=== PATIENT | male | born 1995 | race Caucasian/White ===

== ENCOUNTER 2022-11-23 05:02 | Emergency (ER) | payer BC ==
[~2022-11-23] VITALS: Ht 165.1 cm; Wt 91.0 kg
[2022-11-23] MEDS ORDERED: KETOROLAC 30 MG/ML VIAL IVP STA (05:34)
--- NOTE | 2022-11-23 05:34 | ED GU-Male ---
General Chief Complaint: Respiratory Problems Stated Complaint: GROIN PAIN Nursing Triage Note: TO ED VIA POV AND AMBULATORY TO ROOM 7 WITH C/O RIGHT SIDE GROIN PAIN SINCE 399. C/O PAIN WITH URINATION STATING "IT JUST MADE MY GROIN FEEL WORSE". Source: patient (HERMINIODUSTY Michelle DEJESUS) History of Present Illness Date Seen by Provider: Nov 23, 2022 Time Seen by Provider: 05:27 Initial Comments PT ARRIVES VIA POV FROM HOME C/O RIGHT GROIN / TESTICULAR PAIN SINCE 1899 LAST NIGHT SUDDEN ONSET OF PAIN WHILE SITTING, BUT JUST PRIOR TO THAT HE HAD LIFTED UP HIS GIRLFRIEND. RATES PAIN 7/10 WITH STANDING, 4/10 WITH LAYING DOWN. PAIN IS CONSTANT/DOES NOT GO AWAY STATES WHEN HE STANDS UP, IT FEELS LIKE THERE IS AN EXTRA "SAC" IN HIS RIGHT TESTICLE AREA. THIS GETS BETTER/GOES AWAY WHEN HE LAYS DOWN. VOIDED JUST PRIOR TO ARRIVAL AND PAIN GOT WORSE NO NAUSEA/VOMITING NO FEVER HAS NOT TAKEN ANYTHING FOR PAIN NO HISTORY OF SIMILAR NO PRIOR SURGERIES NO MEDICAL PROBLEMS LAST ATE AT 299--FRIED POTATOES AND SAUSAGE. PCP: DR. ARCHER--HAS NOT SEEN IN A LONG TIME (DUSTY DURHAM DO) Allergies and Home Medications Allergies Coded Allergies: No Known Drug Allergies (Unverified , 11/23/22) Patient Home Medication List Home Medication List Reviewed: Yes (JANELLE WICK MD) Sulfamethoxazole/Trimethoprim (Bactrim Ds Tablet) 1 Each Tablet, 1 EACH PO BID Prescribed by: JANELLE WICK on 11/23/22 0901 Review of Systems Review of Systems Constitutional: no symptoms reported Respiratory: no symptoms reported Cardiovascular: no symptoms reported Gastrointestinal: no symptoms reported Genitourinary: see HPI Musculoskeletal: no symptoms reported Skin: no symptoms reported Psychiatric/Neurological: No Symptoms Reported Endocrine: No Symptoms Reported Hematologic/Lymphatic: No Symptoms Reported (DUSTY DURHAM DO) Past Njbrddw-Ceyybe-Gmwxue Hx Patient Social History Tobacco Use?: No Substance use?: No Alcohol Use?: No (DUSTY DURHAM DO) Past Medical History Surgeries: No Respiratory: No Cardiac: No Neurological: No Genitourinary: No Gastrointestinal: No Musculoskeletal: No Endocrine: No HEENT: No Cancer: No Psychosocial: No Integumentary: No Blood Disorders: No (DUSTY DURHAM DO) Physical Exam Vital Signs Vital Signs - First Documented 11/23/22 05:26 Temp 36.6 Pulse 69 Resp 16 B/P (MAP) 140/89 (106) Pulse Ox 96 O2 Delivery Room Air (JANELLE WICK MD) Vital Signs Capillary Refill : Less Than 3 Seconds (DUSTY DURHAM DO) Height, Weight, BMI Height: '" Weight: lbs. oz. kg; 33.00 BMI Method: General Appearance: WD/WN, no apparent distress (BUT LOOKS UNCOMFORTABLE) Neck: normal inspection Cardiovascular: regular rate, rhythm, no murmur Respiratory: normal breath sounds, no respiratory distress, no accessory muscle use Gastrointestinal: normal bowel sounds, non tender, soft Male: No erythema; inguinal tenderness (RIGHT INGUINAL TENDERNESS. UNABLE TO PALPATE HERNIA, OR INDUCE BY STANDING AND COUGHING/STRAINING); No testicular tenderness; other (PENIS IS NORMAL, NON-TENDER, NO LESIONS OR DISCHARGE. TESTES ARE NORMAL POSITION, MOBILE, WITHOUT TENDERNESS OR SWELLING OR ERYTHEMA TO THE AREA. NO SIGNS OF INFECTION TO OVERLYING SKIN. ) Back: normal inspection, no CVA tenderness Extremities: normal inspection, normal capillary refill Neurologic/Psychiatric: no motor/sensory deficits, alert, normal mood/affect, oriented x 3 Skin: normal color, warm/dry; No rash (DUSTY DURHAM DO) Progress/Results/Core Measures Suspected Sepsis SIRS Temperature: Pulse: 69 Respiratory Rate: 16 Laboratory Tests 11/23/22 05:39: White Blood Count 11.1H Blood Pressure 140 /89 Mean: 106 Laboratory Tests 11/23/22 05:39: Creatinine 1.07, Platelet Count 249, Total Bilirubin 0.4 (DUSTY DURHAM DO) Results/Orders Lab Results Laboratory Tests Test 11/23/22 05:39 11/23/22 06:24 Range/Units White Blood Count 11.1 H 4.3-11.0 10^3/uL Red Blood Count 5.29 4.30-5.52 10^6/uL Hemoglobin 15.9 13.3-17.7 g/dL Hematocrit 46 40-54 % Mean Corpuscular Volume 88 80-99 fL Mean Corpuscular Hemoglobin 30 25-34 pg Mean Corpuscular Hemoglobin Concent 34 32-36 g/dL Red Cell Distribution Width 12.6 10.0-14.5 % Platelet Count 249 130-400 10^3/uL Mean Platelet Volume 10.3 9.0-12.2 fL Immature Granulocyte % (Auto) 0 % Neutrophils (%) (Auto) 54 42-75 % Lymphocytes (%) (Auto) 35 12-44 % Monocytes (%) (Auto) 9 0-12 % Eosinophils (%) (Auto) 2 0-10 % Basophils (%) (Auto) 0 0-10 % Neutrophils # (Auto) 6.0 1.8-7.8 10^3/uL Lymphocytes # (Auto) 3.9 1.0-4.0 10^3/uL Monocytes # (Auto) 1.0 0.0-1.0 10^3/uL Eosinophils # (Auto) 0.2 0.0-0.3 10^3/uL Basophils # (Auto) 0.1 0.0-0.1 10^3/uL Immature Granulocyte # (Auto) 0.0 0.0-0.1 10^3/uL Sodium Level 141 135-145 MMOL/L Potassium Level 3.8 3.6-5.0 MMOL/L Chloride Level 107 98-107 MMOL/L Carbon Dioxide Level 22 21-32 MMOL/L Anion Gap 12 5-14 MMOL/L Blood Urea Nitrogen 11 7-18 MG/DL Creatinine 1.07 0.60-1.30 MG/DL Estimat Glomerular Filtration Rate 98 BUN/Creatinine Ratio 10 Glucose Level 89 70-105 MG/DL Calcium Level 9.4 8.5-10.1 MG/DL Corrected Calcium 9.0 8.5-10.1 MG/DL Total Bilirubin 0.4 0.1-1.0 MG/DL Aspartate Amino Transf (AST/SGOT) 20 5-34 U/L Alanine Aminotransferase (ALT/SGPT) 25 0-55 U/L Alkaline Phosphatase 97 40-136 U/L Total Protein 7.5 6.4-8.2 GM/DL Albumin 4.5 3.2-4.5 GM/DL Urine Color YELLOW Urine Clarity CLEAR Urine pH 7.5 5-9 Urine Specific [place] 1.020 1.016-1.022 Urine Protein TRACE H NEGATIVE Urine Glucose (UA) NEGATIVE NEGATIVE Urine Ketones NEGATIVE NEGATIVE Urine Nitrite NEGATIVE NEGATIVE Urine Bilirubin NEGATIVE NEGATIVE Urine Urobilinogen 0.2 < = 1.0 MG/DL Urine Leukocyte Esterase NEGATIVE NEGATIVE Urine RBC (Auto) NEGATIVE NEGATIVE Urine RBC NONE /HPF Urine WBC 10-25 H /HPF Urine Squamous Epithelial Cells NONE /HPF Urine Crystals NONE /LPF Urine Bacteria NEGATIVE /HPF Urine Casts NONE /LPF Urine Mucus NEGATIVE /LPF Urine Culture Indicated YES (JANELLE WICK MD) Medications Given in ED (JANELLE WICK MD) Vital Signs/I&O 11/23/22 11/23/22 05:26 09:14 Temp 36.6 36.9 Pulse 69 83 Resp 16 19 B/P (MAP) 140/89 (106) 137/86 Pulse Ox 96 98 O2 Delivery Room Air Room Air (JANELLE WICK MD) Vital Signs/I&O Capillary Refill : Less Than 3 Seconds (DUSTY DURHAM DO) Blood Pressure Mean: 106 Progress Note : Progress Note GIVEN: -IV FLUIDS -TORADOL DIFFERENTIAL DX: UTI, STD, EPIDIDYMITIS, TESTICULAR TORSION, KIDNEY/URETERAL STONE, APPENDICITIS, HERNIA. ORDERED UA, CBC, CMP, WELL KUB AND CT ABDOMEN AND PELVIS IF CT NEGATIVE, MAY NEED TO DO ULTRASOUND 0600--CARE TURNED OVER TO DR. WICK, ALL STUDIES PENDING. (DUSTY DURHAM DO) Progress Note : Time: 09:01 (JANELLE WICK MD) Diagnostic Imaging Diagonstic Imaging: CT Comments [facility], [place] NAME: MATTY OZUNA [facility] REC#: [id number] PT STATUS: REG ER : 1995 PHYSICIAN: DUSTY DURHAM DO ADMIT DATE: 11/23/22/ER Draft Date of Exam:11/23/22 CT ABD/PELVIS WO(KIDNEY STONE) PROCEDURE: CT urinary tract, rule out kidney stone. TECHNIQUE: Multiple contiguous axial images were obtained through the abdomen and pelvis without the use of intravenous contrast. Auto Exposure Controls were utilized during the CT exam to meet ALARA standards for radiation dose reduction. INDICATION: Flank pain. FINDINGS: The heart size is normal. The lung bases are clear. The liver is normal in size without focal lesions. Gallbladder is unremarkable. There is no biliary ductal dilatation. Spleen is normal. Pancreas and adrenal glands are unremarkable. Kidneys are normal in appearance. Specifically, there is no evidence of nephrolithiasis or obstructive uropathy. Aorta is nonaneurysmal. Bowel gas pattern is nonspecific. The appendix is normal. There is no free air. There is no ascites. There are no focal inflammatory changes. Bladder is normal. There is no pelvic mass, adenopathy or free fluid. The osseous structures are unremarkable. IMPRESSION: Unremarkable noncontrast CT abdomen and pelvis. Specifically, there is no evidence of nephrolithiasis or obstructive uropathy. Dictated on workstation # [id number] Dict: 11/23/2218 Trans: 11/23/22620 [id number] Interpreted by: ADRIANA SMITH MD Electronically signed by: Diagonstic Imaging: [facility] [place], [place] NAME: MATTY OZUNA [facility] REC#: [id number] PT STATUS: REG ER : 1995 PHYSICIAN: DUSTY DURHAM DO ADMIT DATE: 11/23/22/ER Draft Date of Exam:11/23/22 ABDOMEN/KUB 1VIEW INDICATION: Abdominal pain. FINDINGS: The lung bases are clear. Bowel gas pattern is nonspecific. There is no free air. There are no abnormal abdominal calcifications. IMPRESSION: Nonspecific bowel gas pattern. Dictated on workstation # [id number] Dict: 11/23/2215 Trans: 11/23/22616 [id number] Interpreted by: ADRIANA SMITH MD Electronically signed by: (JANELLE WICK MD) Departure Impression Primary Impression: Right groin pain Additional Impression: UTI (urinary tract infection) Qualified Codes: N39.0 - Urinary tract infection, site not specified Disposition: 01 HOME, SELF-CARE Condition: Stable Departure-Patient Inst. Decision time for Depature: 08:59 (JANELLE WICK MD) Referrals: HERNAN ARCHER DO Patient Instructions: Groin Strain ED, Urinary Tract Infection, Adult ED Add. Discharge Instructions: Drink plenty of fluids to stay well-hydrated. Take the antibiotics twice a day for the next 5 days. Complete the entire course for urinary tract infection. Take [id number] generic Aleve 2 pills twice daily with food as needed for pain. Contact your primary care doctor today for a follow-up appointment in 1 week. If you have worsening pain that is not relieved with the Aleve especially with fever, vomiting please return to the emergency room for reevaluation. Your ultrasound and CAT scan today did not show any evidence of hernia. Scripts Sulfamethoxazole/Trimethoprim (Bactrim Ds Tablet) 1 Each Tablet 1 EACH PO BID for 5 Days, #10 TAB Prov: JANELLE WICK MD 11/23/22 DUSTY DURHAM DO Nov 23, 2022 05:34 JANELLE WICK MD Nov 23, 2022 06:40
[2022-11-23] MEDS ORDERED: LACTATED RINGERS 1,000 ML IV ONE (05:45)
[2022-11-23 05:47] LABS: BASOPHILS # (AUTO) 0.1 10^3/uL (0.0-0.1); BASOPHILS % (AUTO) 0 % (0-10); EOSINOPHILS # (AUTO) 0.2 10^3/uL (0.0-0.3); EOSINOPHILS % (AUTO) 2 % (0-10); HEMATOCRIT 46 % (40-54); HEMOGLOBIN 15.9 g/dL (13.3-17.7); LYMPHOCYTES # (AUTO) 3.9 10^3/uL (1.0-4.0); LYMPHOCYTES % (AUTO) 35 % (12-44); MEAN CORPUSCULAR HEMOGLOBIN 30 pg (25-34); MEAN CORPUSCULAR HGB CONC 34 g/dL (32-36); MEAN CORPUSCULAR VOLUME 88 fL (80-99); MEAN PLATELET VOLUME 10.3 fL (9.0-12.2); MONOCYTES % (AUTO) 9 % (0-12); NEUTROPHILS % (AUTO) 54 % (42-75); PLATELET COUNT 249 10^3/uL (130-400); WHITE BLOOD COUNT 11.1 10^3/uL (4.3-11.0)
[2022-11-23 05:55] LABS: ALBUMIN 4.5 GM/DL (3.2-4.5); POTASSIUM 3.8 MMOL/L (3.6-5.0)
[2022-11-23 05:57] LABS: CALCIUM 9.4 MG/DL (8.5-10.1)
[2022-11-23 05:58] LABS: TOTAL PROTEIN 7.5 GM/DL (6.4-8.2)
[2022-11-23 05:59] LABS: BILIRUBIN,TOTAL 0.4 MG/DL (0.1-1.0)
[2022-11-23 06:01] LABS: CREATININE SERUM 1.07 MG/DL (0.60-1.30)
--- NOTE | 2022-11-23 06:17 | Diagnostic Imaging Report ---
INDICATION: Abdominal pain. FINDINGS: The lung bases are clear. Bowel gas pattern is nonspecific. There is no free air. There are no abnormal abdominal calcifications. IMPRESSION: Nonspecific bowel gas pattern. Dictated by: Dictated on workstation # [id number]
--- NOTE | 2022-11-23 06:21 | Diagnostic Imaging Report ---
PROCEDURE: CT urinary tract, rule out kidney stone. TECHNIQUE: Multiple contiguous axial images were obtained through the abdomen and pelvis without the use of intravenous contrast. Auto Exposure Controls were utilized during the CT exam to meet ALARA standards for radiation dose reduction. INDICATION: Flank pain. FINDINGS: The heart size is normal. The lung bases are clear. The liver is normal in size without focal lesions. Gallbladder is unremarkable. There is no biliary ductal dilatation. Spleen is normal. Pancreas and adrenal glands are unremarkable. Kidneys are normal in appearance. Specifically, there is no evidence of nephrolithiasis or obstructive uropathy. Aorta is nonaneurysmal. Bowel gas pattern is nonspecific. The appendix is normal. There is no free air. There is no ascites. There are no focal inflammatory changes. Bladder is normal. There is no pelvic mass, adenopathy or free fluid. The osseous structures are unremarkable. IMPRESSION: Unremarkable noncontrast CT abdomen and pelvis. Specifically, there is no evidence of nephrolithiasis or obstructive uropathy. Dictated by: Dictated on workstation # [id number]
[2022-11-23 06:32] LABS: BILIRUBIN,URINE NEGATIVE (NEGATIVE); CLARITY,URINE CLEAR; COLOR,URINE YELLOW; GLUCOSE, URINE (UA) NEGATIVE (NEGATIVE); KETONES,URINE NEGATIVE (NEGATIVE); LEUKOCYTE ESTERASE ,URINE NEGATIVE (NEGATIVE); NITRITE,URINE NEGATIVE (NEGATIVE); PH,URINE 7.5 (5-9); PROTEIN,URINE TRACE (NEGATIVE)
[2022-11-23 07:01] LABS: BACTERIA,URINE NEGATIVE /HPF
--- NOTE | 2022-11-23 08:50 | Diagnostic Imaging Report ---
PROCEDURE: US Scrotum. TECHNIQUE: Multiple real-time grayscale images were obtained over the scrotum in various projections bilaterally. INDICATION: Right inguinal pain. Right testicle measures 4.0 x 2.1 x 4.0 cm and the left testicle measures 3.9 x 1.9 x 2.6 cm. Both testes demonstrate homogeneous echotexture. No discrete testicular mass is identified. There is blood flow to both testes. Epididymides are unremarkable. No hydrocele is identified. There are some prominent vessels lateral to the right testicle, suggestive of a varicocele. IMPRESSION: 1. No evidence of testicular mass or vascular compromise. 2. Findings suggestive of right varicocele. Dictated by: Dictated on workstation # [id number]
[2022-11-23] MEDS ORDERED: SULF1TAB38 PO (09:01)
[2022-11-23 09:14] VITALS: BP 137/86
== END 2022-11-23 09:14 | disposition home or self-care (01) ==
LOC: EDUNIT# 05:02 → ER 05:12
DX: N39.0 Urinary tract infection, site not specified (principal); Z28.310 Unvaccinated for COVID-19
CPT/HCPCS: 36415; 74018; 74176; 76870; 80053; 81000; 85025; 87088; 87491; 87591